=== PATIENT | female | born 2000 | race African-American/Black ===

== ENCOUNTER 2018-04-17 16:08 | Emergency (ER) | payer BC, OTHER ==
[~2018-04-17] VITALS: Ht 152.4 cm; Wt 57.2 kg
[2018-04-17] MEDS ORDERED: IBUPROFEN600 MG ORAL (16:45)
--- NOTE | 2018-04-17 16:45 | Emergency Room Report ---
History of Present Illness General Chief Complaint: Pain Source: Patient Present Illness HPI 18-year-old female with no sig pmhx, p/w chest pain for 1 day. Chest pain started after she had a big sneeze. Localized to right chest, no radiation to back or other areas, sharp in nature, gradual in onset, Worsened with deep inspiration. Denies palpitations, diaphoresis, n/v. This is the first occurrence of chest pain. Denies fever, chills, cough, abd pain, recent viral illness. Denies trauma. Denies cardiac history, smoking, or family history of cardiac disease at a young age. Denies history of PE/DVT, no recent surgeries, prolonged immobilzation, malignancy, or use of OCPs/HRT. Allergies: Coded Allergies: No Known Allergies (Unverified , 04/17/18) Patient History Past Medical History: see triage record Past Surgical History: none Pertinent Family History: none Last Menstrual Period: 04/05/18 Now: No Reviewed Nursing Documentation: PMH: Agreed; PSxH: Agreed Nursing Documentation-PMH Past Medical History: No Stated History Review of Systems All Other Systems: negative except mentioned in HPI Physical Exam Vital Signs Date Time Temp Pulse Resp B/P (MAP) Pulse Ox O2 Delivery O2 Flow Rate FiO2 04/17/18 16:20 98.7 73 16 120/80 97 Room Air 98.8 Sp02 EP Interpretation: reviewed, normal General Appearance: normal inspection, well appearing, no apparent distress, alert, GCS 15, non-toxic Head: normocephalic, atraumatic Eyes: bilateral eye normal inspection, bilateral eye PERRL, bilateral eye EOMI ENT: normal ENT inspection, normal pharynx, normal voice, moist mucus membranes Neck: normal inspection, full range of motion, supple Respiratory: normal inspection, lungs clear, normal breath sounds, no respiratory distress, no retraction, no wheezing, speaking full sentences, chest symmetrical Cardiovascular #1: normal inspection, regular rate, rhythm, no edema, normal capillary refill Cardiovascular #2: 2+ radial (R), 2+ radial (L) Gastrointestinal: normal inspection, non tender, soft, non-distended, no guarding Musculoskeletal: normal inspection, back normal, normal range of motion, non- tender Neurologic: normal inspection, alert, oriented x3, responsive, motor strength/ tone normal, sensory intact, normal gait, speech normal Psychiatric: normal inspection, judgement/insight normal, memory normal Skin: normal inspection, normal color, no rash, warm/dry, well hydrated, normal turgor Medical Decision Making Diagnostic Impression: Primary Impression: Chest pain Additional Impression: Dyspnea ER Course 18-year-old female p/w chest pain after she sneezed DDX: Musculoskeletal CP/costochondritis vs. pneumothorax vs. gastritis/GERD PE less likely given history and physical examination, not hypoxic/tachycardic, no risk factors, PERC negative. ACS less likely given age/history Plan: NSAIDs, EKG, CXR Anticipate DC home as patient appears clinically well. ER course: Patient was treated NSAIDs with improvement of pain. Patient remains well appearing in ED. Disposition: Patient will be discharged to home with a prescription of motrin. Strict precautions discussed with patient on when to emergently return to the ED : this includes worsening/severe chest pain, palpitations, shortness of breath, syncopal episodes, fever or chills, which may indicate severe illness. Patient verbalized understanding. Patient instructed to follow up with their PMD within the next 2 days. Patient agrees with plan. Please note that this Emergency Department Report was dictated using [employer] set [employer] operator technology software, occasionally this can lead to erroneous entry secondary to interpretation by the dictation equipment. EKG Diagnostic Results EP Interpretation: Yes Rate: normal Rhythm: NSR ST Segments: No acute changes ASA given to patient: no Rhythm Strip EP Interpretation: Yes Rate: 70 Rhythm: NSR, no PVCs, no ectopy Chest X-ray CXR: Ordered: Yes 1 view Indication: Chest pain EP interpretation: Yes Interpretation: No consolidation, no effusion, no PTX, no acute cardiopulmonary disease Impression: No acute disease Electronically signed by Elizabeth Hill MD Last Vital Signs Date Time Temp Pulse Resp B/P (MAP) Pulse Ox O2 Delivery O2 Flow Rate FiO2 04/17/18 16:20 98.7 73 16 120/80 97 Room Air 98.8 Disposition: HOME, SELF-CARE Condition: Improved Scripts Ibuprofen* (MOTRIN*) 600 Mg Tablet 600 MG ORAL Q8H PRN for For Pain, #30 TAB 0 Refills Prov: Elizabeth Hill M.D. 04/17/18 Elizabeth Hill M.D. Apr 17, 2018 16:45
[2018-04-17 16:49] VITALS: BP 120/80
[2018-04-17 17:23] VITALS: BP 120/80
--- NOTE | 2018-04-18 14:38 | Diagnostic Imaging Report ---
Indication: Chest pain Technique: One view of the chest Comparison: none Findings: Lungs and pleural spaces are clear. Heart size is normal Impression: No acute process
--- NOTE | 2018-04-20 12:20 | Cardiology Report ---
APPROVED REPORT EKG Measurement Heart [id number] Normal sinus rhythm Normal ECG
== END 2018-04-17 17:30 | disposition home or self-care (01) ==
LOC: EMR 16:58
DX: R07.9 Chest pain, unspecified (principal); R06.00 Dyspnea, unspecified
CPT/HCPCS: 71045; 93005; 99283